=== PATIENT | male | born 1960 | race Caucasian/White ===

== ENCOUNTER 2017-02-02 17:24 | Emergency (ER) | payer OTHER ==
[~2017-02-02] VITALS: Ht 182.9 cm; Wt 114.8 kg
[~2017-02-02 17:24] MED LIST: ASPI325T4 PO; ATEN50TA PO; LISI-334 PO; PRED20TA PO; PROAIR HFA8.5 GM INH; RANI150T2 PO
[2017-02-02 17:35] VITALS: BP 134/86
[2017-02-02] MEDS ORDERED: ONDA4TAB10 SL (18:22)
[2017-02-02] MEDS ORDERED: DOXY100C2 PO (18:22)
--- NOTE | 2017-02-02 18:22 | PHYS DOC ---
Past Medical History Past Medical History: Diverticulitis, Hypertension, Other Additional Past Medical Histor: lymes disease Past Surgical History: Other Additional Past Surgical Histo: vasectomy Alcohol Use: Occasionally Drug Use: None Adult General Chief Complaint Chief Complaint: SKIN PROBLEM [facility] HPI Patient is a 56 year old male presents to the emergency department stating that he has an area on the left outer part of his thigh has a quarter-sized area that is red swollen and tender to touch. He also has a second area on the left outer thigh that is less than a dime size that is just red. Patient states that he has had these for a week no drainage or discharge noted from the areas he denies any fever, chills or any nausea vomiting. He does state it has had slight itching to the area. He denies having any type of tick bites or any visual appearance of any tics or drug screen on him though he is concern for Lyme's disease. History of times in the past. Patient's last tetanus was in 2016. Review of Systems Review of Systems Constitutional: Denies fever or chills [] Eyes: Denies change in visual acuity, redness, or eye pain [] HENT: Denies nasal congestion or sore throat [] Respiratory: Denies cough or shortness of breath [] Cardiovascular: No additional information not addressed in HPI [] GI: Denies abdominal pain, nausea, vomiting, bloody stools or diarrhea [] : Denies dysuria or hematuria [] Musculoskeletal: Denies back pain or joint pain [] Integument: Denies rash or skin lesions. Two kody areas on the left outer thigh Neurologic: Denies headache, focal weakness or sensory changes [] Allergies Allergies Allergies Coded Allergies Type Severity Reaction Last Updated Verified cephalexin Allergy Intermediate hives 06/15/14 Yes Physical Exam Physical Exam Constitutional: Well developed, well nourished, no acute distress, non-toxic appearance. [] HENT: Normocephalic, atraumatic, bilateral external ears normal, oropharynx moist, no oral exudates, nose normal. [] Eyes: PERRLA, EOMI, conjunctiva normal, no discharge. [] Neck: Normal range of motion, no tenderness, supple, no stridor. [] Cardiovascular:Heart rate regular rhythm, no murmur [] Lungs & Thorax: Bilateral breath sounds clear to auscultation [] Skin: Warm, dry, no erythema, no rash. She'll with one area on the left upper thigh that is approximately size of a quarter. It appears to be very red and circular with the center part appearing to have a scabbed area. No drainage or discharge noted from the site the area appears to be warm and tender. He also has a second spot that is slightly lower that is less than a dime size. It appears to be red and warm no tenderness no drainage noted from the site. Back: No tenderness Extremities: No tenderness, no cyanosis, no clubbing, ROM intact, no edema. Peripheral pulses 2+. Patient with good sensation and lower extremities. Neurologic: Alert and oriented X 3, normal motor function, normal sensory function, no focal deficits noted. [] Psychologic: Affect normal, judgement normal, mood normal. [] Current Patient Data Vital Signs Vital Signs Date Time Temp Pulse Resp B/P Pulse Ox O2 Delivery O2 Flow Rate FiO2 02/02/17 17:35 69 16 134/86 96 Room Air EKG EKG [] Radiology/Procedures Radiology/Procedures [] Course & Med Decision Making Course & Med Decision Making Pertinent Labs and Imaging studies reviewed. (See chart for details) Patient will be placed on doxycycline 1 tablet twice a day for the next 10 days. He'll also be provided with Zofran as he states that he has had some nausea feeling when he was on doxycycline in the past. Patient was be instructed to keep the area clean dry. Recommended cleaning the site with soap and water and apply antibiotic ointment to the area twice a day. Patient to follow up with his primary care physician in the next 3-5 days. Signs and symptoms to return back to emergency prior has been provided. [] Dragon Disclaimer Dragon Disclaimer This electronic medical record was generated, in whole or in part, using a voice recognition dictation system. Departure Departure Impression: Primary Impression: Cellulitis of left thigh Disposition: 01 HOME, SELF-CARE Condition: STABLE Referrals: RADHA MERLOS MD (PCP) Patient Instructions: Cellulitis, [id number] Additional Instructions: Activity as tolerated. Keep the area clean and dry. Clean the site with soap and water and apply antibiotic ointment to the area twice a day. Medication as prescribed. Tylenol or ibuprofen for pain and discomfort. Follow-up with your primary care physician next 3-5 days. Return back to emergency department for signs and symptoms of become worse. Scripts Ondansetron (Zofran Odt)4 Mg Tab.rapdis1 Tab SL Q8HRS PRN NAUSEA/VOMITING #10 TAB Prov:ELEAZAR HENRIQUEZ APRN 02/02/17 Doxycycline Hyclate 100 Mg Capsule1 Cap PO BID #20 CAP Prov:ELEAZAR HENRIQUEZ APRN 02/02/17 ELEAZAR HENRIQUEZ APRN Feb 02, 2017 18:22
== END 2017-02-02 18:20 | disposition home or self-care (01) ==
LOC: ER 17:24
DX: L03.116 Cellulitis of left lower limb (principal); I10 Essential (primary) hypertension; Z88.1 Allergy status to other antibiotic agents
CPT/HCPCS: 99283

== ENCOUNTER 2019-08-03 08:07 | Emergency (ER) | payer BC, OTHER ==
[~2019-08-03] VITALS: Ht 182.9 cm; Wt 104.3 kg
[~2019-08-03 08:07] MED LIST changes: +ALBU2.5V8 INH; -ASPI325T4 PO; +ASPI325T8 PO; +DOXY100C2 PO; +ONDA4TAB10 SL; -PROAIR HFA8.5 GM INH
[2019-08-03 08:35] VITALS: BP 137/94
[2019-08-03] MEDS ORDERED: DEXAMETHASONE SOD PHOS 20 MG/5 ML VIAL. IM ONE (08:45)
[2019-08-03] MEDS ORDERED: KETOROLAC 60 MG/2 ML VIAL. IM ONE (08:45)
--- NOTE | 2019-08-03 09:10 | PHYS DOC ---
Past Medical History Past Medical History: Diverticulitis, Hypertension, Other Additional Past Medical Histor: lymes disease Past Surgical History: Other Additional Past Surgical Histo: vasectomy Alcohol Use: None Drug Use: None Adult General Chief Complaint Chief Complaint: BACK PAIN - NO INJURY HPI HPI Patient is a 59-year-old male who presents with complaint of right-sided lower back pain that started a couple days ago. Patient states the pain is moderate and states that the pain is worsened especially when he goes to sit down or stand up. He denies any radiation of the pain and denies any loss of bowel or bladder control. He denies any recent injuries.[] Review of Systems Review of Systems Constitutional: Denies fever or chills [] Respiratory: Denies cough or shortness of breath [] Cardiovascular: No additional information not addressed in HPI [] GI: Denies abdominal pain, nausea, vomiting or diarrhea [] Musculoskeletal: Complains of right-sided lower back pain [] Integument: Denies rash or skin lesions [] Neurologic: Denies headache, focal weakness or sensory changes [] Current Medications Current Medications Current Medications Medications (Trade) Dose Ordered Sig/Jerrod Start Time Stop Time Status Last Admin Dose Admin Dexamethasone Sodium Phosphate (Decadron) 10 mg 1X ONCE 08/03/19 08:45 08/03/19 08:46 DC 08/03/19 08:45 10 MG Ketorolac Tromethamine (Toradol Im) 60 mg 1X ONCE 08/03/19 08:45 08/03/19 08:46 DC 08/03/19 08:56 60 MG Allergies Allergies Allergies Coded Allergies Type Severity Reaction Last Updated Verified cephalexin Allergy Intermediate hives 06/15/14 Yes Physical Exam Physical Exam Constitutional: Well developed, well nourished, no acute distress, non-toxic appearance. [] Cardiovascular:Heart rate regular rhythm, no murmur [] Lungs & Thorax: Bilateral breath sounds clear to auscultation [] Skin: Warm, dry, no erythema, no rash. [] Back: Examination of lower back demonstrates mild tenderness around the right sacral sulcus with greatest level of tenderness along the SI joint on the right about 1 inch below the sacral sulcus. [] Neurologic: Alert and oriented X 3, no focal deficits noted. [] Current Patient Data Vital Signs Vital Signs Date Time Temp Pulse Resp B/P (MAP) Pulse Ox O2 Delivery O2 Flow Rate FiO2 08/03/19 08:35 97.6 76 16 137/94 (108) 98 Room Air 97.6 EKG EKG [] Radiology/Procedures Radiology/Procedures [] Course & Med Decision Making Course & Med Decision Making Pertinent Labs and Imaging studies reviewed. (See chart for details) [] Dragon Disclaimer Dragon Disclaimer This electronic medical record was generated, in whole or in part, using a voice recognition dictation system. Departure Departure Impression: Primary Impression: Low back pain Disposition: HOME, SELF-CARE Condition: STABLE Referrals: RADHA MERLOS MD (PCP) Patient Instructions: Back Pain, Adult Scripts Orphenadrine Citrate (ORPHENADRINE CITRATE) 100 Mg Tablet.er 1 TAB PO BID PRN for MUSCLE SPASMS, #20 TAB Prov: OSWALDO BARRIOS Jr. DO 08/03/19 Tramadol Hcl (TRAMADOL HCL) 50 Mg Tablet 50 MG PO Q6HRS PRN for PAIN, #15 TAB Prov: OSWALDO BARRIOS Jr. DO 08/03/19 Problem Qualifiers Primary Impression: Low back pain Chronicity: acute Back pain laterality: right Sciatica presence: without sciatica Qualified Codes: M54.5 - Low back pain OSWALDO BARRIOS Jr. DO Aug 03, 2019 09:10
[2019-08-03] MEDS ORDERED: ORPH100T PO (09:15)
[2019-08-03] MEDS ORDERED: TRAM50TA PO (09:15)
== END 2019-08-03 10:04 | disposition home or self-care (01) ==
LOC: ER 08:07
DX: M54.5 Low back pain (principal); I10 Essential (primary) hypertension; Z98.52 Vasectomy status; Z88.1 Allergy status to other antibiotic agents
CPT/HCPCS: 96372; 99284; J1100; J1885

== ENCOUNTER → 2019-10-07 | Outpatient (CLI) | payer BC, OTHER ==
[~2019-10-07] MED LIST changes: +ORPH100T PO; +TRAM50TA PO
--- NOTE | 2019-10-07 12:12 | KCIC ---
Bilateral diagnostic digital mammograms: Reason for examination: Right nipple pain/pimple popped with a needle 2 weeks ago. On antibiotic therapy. Interpretation is made with the benefit of CAD. The skin and nipples show no abnormalities. No abnormal lymph nodes are seen. The breast parenchyma is predominantly fatty. (Breast density: Category A.) There are no dominant masses, suspicious calcifications or architectural distortions. Impression: No evidence of malignancy. Recommend routine screening. BI-RADS Category 1: Negative. "Our facility is accredited by the [employer] Mammography Program." This patient's information has been entered into a reminder system for the patient to be notified with the results of her examination and a target date for the next mammogram. Electronically signed by: Dayna Patterson MD (10/07/2019 12:09 PM) [id number]
== END | disposition home or self-care (01) ==
LOC: KCIC MAMMO 09:35
PROVIDERS: ATTEND Nurse Practitioner Family
DX: N64.4 Mastodynia (principal)
CPT/HCPCS: 77066

== ENCOUNTER 2021-06-07 16:45 | Emergency (ER) | payer OTHER ==
[~2021-06-07] VITALS: Ht 182.9 cm; Wt 104.9 kg
[~2021-06-07 16:45] MED LIST changes: -DOXY100C2 PO; +DOXY100C3 PO; -LISI-334 PO; +LISI20TA18 PO
[2021-06-07 18:00] VITALS: BP 138/79
[2021-06-07] MEDS ORDERED: LIDOCAINE 2%/EPI 1:100,000 20 ML VIAL. INJ ONE (18:30)
[2021-06-07] MEDS ORDERED: DOXY100T PO (19:10)
--- NOTE | 2021-06-07 19:10 | ED.ADGEN ---
Past Medical History Past Medical History: Diverticulitis, Hypertension, Other Additional Past Medical Histor: lymes disease Past Surgical History: Other Additional Past Surgical Histo: vasectomy Smoking Status: Never Smoker Alcohol Use: None Drug Use: None General Adult EDM: Chief Complaint: LACERATION/AVULSION HPI: HPI: Patient is a 61 year old male who presents to the emergency department with complaints of a laceration to the back of his left leg. Patient states that a pato-shaped piece of metal that was sticking out of his fence cut the back of his left leg. Patient states his last tetanus shot was less than 5 years ago. He denies any numbness, tingling, or decreased sensation of the affected area. Patient currently denies any pain. Review of Systems: Review of Systems: Complete ROS is negative unless otherwise noted in the HPI. Current Medications: Current Medications Medications (Trade) Dose Ordered Sig/Jerrod Start Time Stop Time Status Last Admin Dose Admin Lidocaine/ Epinephrine (LIDOCAINE 2%-EPI 1:100,000 multi-dose) 20 ml 1X ONCE 06/07/21 18:30 06/07/21 18:31 DC 06/07/21 18:30 20 ML Allergies: Allergies: Allergies Coded Allergies Type Severity Reaction Last Updated Verified cephalexin Allergy Intermediate hives 06/15/14 Yes Physical Exam: PE: See above Constitutional: Well developed, well nourished, no acute distress, non-toxic appearance. [] HENT: Normocephalic, atraumatic, bilateral external ears normal, nose normal. [] Eyes: PERRLA, EOMI, conjunctiva normal, no discharge. [] Neck: Normal range of motion, no stridor. [] Cardiovascular:Heart rate regular rhythm Lungs & Thorax: Respirations even and unlabored, no retractions, no respiratory distress Skin: Warm, dry, no erythema, no rash; 3 cm linear vertical laceration to the posterior left calf without any visible foreign body, or active bleeding. [] Extremities: LLE: Sensation intact, cap refill less than 2 seconds, no bony tenderness or deformity, no cyanosis, ROM intact, no edema. [] Neurologic: Alert and oriented X 3, no focal deficits noted. [] Psychologic: Affect normal, judgement normal, mood normal. [] Current Patient Data: Vital Signs: Vital Signs Date Time Temp Pulse Resp B/P (MAP) Pulse Ox O2 Delivery O2 Flow Rate FiO2 06/07/21 18:00 97.9 69 16 138/79 (108) 98 Room Air 97.9 EKG: EKG: [] Heart Score: C/O Chest Pain: No Radiology/Procedures: Radiology/Procedures: Laceration Repair by me: Anesthesia: 2% lidocaine with epinephrine Location: Posterior left calf Tendon/Joint/Nerves: No injury Foreign body: None detected after copious irrigation and exploration with NS and chlorhexidine Technique: 3 simple Interrupted Sutures with 3-0 Ethilon Complexity: No subcutaneous sutures/mucosal repair/edge excision Post Closure Length: 3 cm Patient's bleeding was easily controlled in the department and there is no indic ation of anemia. No evidence of compartment syndrome, neurologic injury, vascular injury, open joint, tendon laceration, or foreign body. Patient is appropriate for outpatient follow up. [] [] Course & Med Decision Making: Course & Med Decision Making Pertinent Labs and Imaging studies reviewed. (See chart for details) [] Dragon Disclaimer: Dragon Disclaimer: This electronic medical record was generated, in whole or in part, using a voice recognition dictation system. Departure Departure Impression: Primary Impression: Laceration of left calf without complication Disposition: 01 HOME / SELF CARE / HOMELESS Condition: STABLE Referrals: RADHA MERLOS MD (PCP) Patient Instructions: Laceration Care, Adult, [id number] Additional Instructions: Fill the prescription and use it as directed. Keep the area clean and dry. You may take Tylenol or ibuprofen as needed for pain. Keep the dressing that was placed today on for 24 hours then change the dressing and wash the site twice a day with soap and water. Follow-up with your primary care doctor, or return to the emergency room in 10-14 days to have the sutures removed, sooner if you develop signs of infection including: redness, warmth, drainage, or a fever. Scripts Doxycycline Hyclate (DOXYCYCLINE HYCLATE) 100 Mg Tablet 1 TAB PO BID for 7 Days, #14 TAB 0 Refills Prov: CATHERINE GARNETT APRN 06/07/21 Problem Qualifiers Primary Impression: Laceration of left calf without complication Encounter type: initial encounter Qualified Codes: S81.812A - Laceration without foreign body, left lower leg, initial encounter CATHERINE GARNETT APRN Jun 07, 2021 19:10
== END 2021-06-07 19:18 | disposition home or self-care (01) ==
LOC: ER 16:45
DX: S81.812A Laceration without foreign body, left lower leg, initial encounter (principal); I10 Essential (primary) hypertension; Z88.1 Allergy status to other antibiotic agents; Y28.8XXA Contact with other sharp object, undetermined intent, initial encounter; Y93.89 Activity, other specified; Y92.89 Other specified places as the place of occurrence of the external cause; Y99.8 Other external cause status
CPT/HCPCS: 12002; 99283; J3490